=== PATIENT | male | born 1990 | race Hispanic/Latino ===

== ENCOUNTER 2023-11-30 12:59 | Emergency (ER) | payer OTHER, SELFPAY ==
[2023-11-30 13:05] VITALS: BP 162/109; PULSE 83; RESP 16; TEMP 36.1; O2SAT 99; BMI 35.3
--- NOTE | 2023-11-30 13:07 | DI.RAD.S_ITS ---
PROCEDURE: XR WRIST LT MIN 3V INDICATIONS: pain TECHNIQUE: 4 views of the wrist were acquired. COMPARISON: None. FINDINGS: Bones: No fractures or dislocations. No suspicious bony lesions. Soft tissues: No suspicious soft tissue calcifications. IMPRESSION: No acute bony abnormality. Dictated by: Rosemary Hernández M.D. on 11/30/2023 at 12:27 Approved by: Rosemary Hernández M.D. on 11/30/2023 at 12:27
--- NOTE | 2023-11-30 14:32 | ED.EXTPRO ---
HPI - Extremity Problem <LAURA Diaz - Last Filed: 11/30/23 14:44> General Chief complaint: Extremity Problem,Nontraumatic Stated complaint: Left wrist pain Time Seen by Provider: 11/30/23 14:32 Source: patient Mode of arrival: Ambulatory History of Present Illness HPI Narrative: 33-year-old male, never smoker, presents to the emergency department with left wrist pain x3 days. Patient states that he dislocated his left wrist a year ago, was reduced by a relative, and was never seen by healthcare professional for this. Patient reports that over the last 3 days the left wrist has become more painful, but denies any known trauma to that area. Related Data Home Medications Medication Instructions Recorded Confirmed oxcarbazepine 600 mg tablet 600 mg PO QDAY ##0 11/11/15 prazosin 2 mg capsule (Minipress) 2 mg PO ##0 11/11/15 trazodone 150 mg tablet 150 mg PO HS #0 tabs 11/11/15 Previous Rx's Medication Instructions Recorded diazepam 5 mg tablet (Valium) 5 mg PO Q8HP PRN #10 tabs 11/11/15 hydrocodone 5 mg-acetaminophen 325 1 tab PO Q6HP PRN #10 tabs 11/11/15 mg tablet ([place]) naproxen 500 mg tablet (Naprosyn) 500 mg PO Q12HP PRN #30 tabs 11/11/15 Allergies Allergy/AdvReac Type Severity Reaction Status Date / Time Penicillins [PENICILLINS] AdvReac Mild RASH Unverified 11/30/23 13:05 Review of Systems <LAURA Diaz - Last Filed: 11/30/23 14:44> Review of Systems Narrative: Narrative: See HPI. GENERAL: Denies chills, fatigue, fever, sweats. HEENT: Denies sinus pain, ear pain, sore throat, difficulty swallowing, dizziness. RESPIRATORY: Denies dyspnea, cough, wheezing, sputum. CARDIOVASCULAR: Denies chest pain, palpitations, edema. GASTROINTESTINAL: Denies nausea, vomiting, abdominal pain, diarrhea, constipation. MSK: Endorses left wrist pain. SKIN: Denies rash, skin lesions, or pruritis. NEUROLOGIC: Denies weakness, dizziness, headache, numbness, confusion. Patient History <LAURA Diaz - Last Filed: 11/30/23 14:44> Social History Smoking Status: Never smoker Smoking Status: Never smoker Substance Use Type: marijuana Exam <LAURA Diaz - Last Filed: 11/30/23 14:44> Narrative Exam Narrative: Exam Narrative: GENERAL: This is a well-nourished, well-developed patient, in no acute distress HEAD: Atraumatic. Normocephalic. ENT: Nose without bleeding, purulent drainage. Airway patent. RESPIRATORY: Respiratory rate and effort are normal. MSK: Moves all extremities. Normal range of motion, no clubbing or edema. Neurovascularly intact. NEURO: A&O x 3. SKIN: Warm, dry, no rashes or lesions noted. WRIST: There is no swelling, bruising or asymmetry. There is mild tenderness to the base of the thumb, but no tenderness to palpation over the carpals, distal ulnar head or radial head. There is no snuff-box tenderness. Sensation grossly intact. Patient is unable to pronate and supinate without pain. Range of motion is full but with minimal pain. Radial pulse intact. [employer] is strong and equivalent. Inter-digital strength is intact. The contralateral wrist exam is unremarkable. Initial Vital Signs Initial Vital Signs: Vital Signs Temperature 97.0 F L 11/30/23 13:05 Pulse Rate 83 11/30/23 13:05 Respiratory Rate 16 11/30/23 13:05 Blood Pressure 162/109 H 11/30/23 13:05 Pulse Oximetry 99 11/30/23 13:05 Oxygen Delivery Method Room Air 11/30/23 13:05 Reviewed <Kyle Roper MD - Last Filed: 11/30/23 21:53> Initial Vital Signs Initial Vital Signs: Vital Signs Temperature 97.0 F L 11/30/23 13:05 Pulse Rate 83 11/30/23 13:05 Respiratory Rate 16 11/30/23 13:05 Blood Pressure 162/109 H 11/30/23 13:05 Pulse Oximetry 99 11/30/23 13:05 Oxygen Delivery Method Room Air 11/30/23 13:05 Course <LAURA Diaz - Last Filed: 11/30/23 14:44> Orders Ordered: ED Orders 11/30/23 13:07 XR wrist LT min 3V Stat Vital Signs Vital signs: Vital Signs - 8 hr 11/30/23 13:05 Temperature 97.0 F L Pulse Rate 83 Respiratory Rate 16 Blood Pressure 162/109 H Pulse Oximetry 99 Oxygen Delivery Method Room Air <Kyle Roper MD - Last Filed: 11/30/23 21:53> Orders Ordered: ED Orders 11/30/23 13:07 XR wrist LT min 3V Stat Vital Signs Vital signs: Vital Signs - 8 hr 11/30/23 13:05 Temperature 97.0 F L Pulse Rate 83 Respiratory Rate 16 Blood Pressure 162/109 H Pulse Oximetry 99 Oxygen Delivery Method Room Air MDM - Extremity (Nontraumatic) <LAURA Diaz - Last Filed: 11/30/23 14:44> Differential Diagnosis Differential diagnosis: Likely other (Left wrist fracture, strain or sprain) Imaging Data Extremity x-ray #1: Radiologist's Impression: [address] [address] XRay Report Signed Patient: Jordin Peña MR#: [id number] : 1990 Acct:[id number] Age/Sex: 33 / M Date of Service: 11/30/23 Loc: ED Accession Number: [id number] Procedure: XR wrist LT min 3V Ordering Provider: Chema Herrera PROCEDURE: XR WRIST LT MIN 3V INDICATIONS: pain TECHNIQUE: 4 views of the wrist were acquired. COMPARISON: None. FINDINGS: Bones: No fractures or dislocations. No suspicious bony lesions. Soft tissues: No suspicious soft tissue calcifications. IMPRESSION: No acute bony abnormality. Dictated by: Rosemary Hernández M.D. on 11/30/2023 at 12:27 Approved by: Rosemary Hernández M.D. on 11/30/2023 at 12:27 [facility] Narrative Medical decision making narrative: 33-year-old male that presents to the emergency department with left wrist pain. Assessment was encouraging x-ray was negative. I suspect this is an overuse injury and have recommended supportive care that includes elevation above heart, ice or cool compress to the affected area and Tylenol or ibuprofen as needed for discomfort. Patient was fitted for a wrist splint, per his request. Discussed plan of care and return precautions with patient, who verbalized understanding and was agreeable with course of action. Discharge Plan Departure Patient Disposition: Home Clinical Impression: Muscle strain of left wrist Qualifiers: Encounter type: initial encounter Qualified Code(s): S66.912A - Strain of unspecified muscle, fascia and tendon at wrist and hand level, left hand, initial encounter Instructions: DI for Muscle Strain Activity Restrictions/Additional Instructions: *You have been diagnosed with a left wrist strain. The x-ray was normal and no fracture or dislocation noted. I believe this may be from an overuse injury and recommend supportive care that includes elevating above your heart and application of ice or cool compress to help with the inflammation and swelling. We have fitted you with a wrist brace that may help with your discomfort. Also, be cognizant of positioning of your hand and wrist when sleeping to ensure it is not in a painful position. Please follow-up with your family doctor as needed. *What to do: *Please continue to take your regular medications as directed. [ ] New medication prescriptions sent to your pharmacy: [ ] [ ] New medication written as a paper prescription [x ] No new medications given *Please follow up with your primary care provider in 2-3 days, call for an appointment. Let them know you were seen in the Emergency Department and that we ask that you be seen in follow up. We will electronically transmit a record of today's note if your PCP is in our system *If you do not have a primary care provider please contact the [facility] Resource line at [phone]. They will ask some questions about your medical history and help get you set up with a doctor in the community. ? Return to ER if you should have any new, worsening or concerning symptoms, such as worsening pain, severe headache, confusion, chest pain, difficulty breathing, fever greater than 101 F, shaking chills, persistent vomiting to the point that you cannot drink fluids, or other new or worsening symptoms. Prescriptions: No Action trazodone 150 MG tablet 150 mg PO HS Qty: 0 oxcarbazepine 600 MG tablet 600 mg PO QDAY Qty: 0 prazosin [Minipress] 2 MG capsule 2 mg PO Qty: 0 hydrocodone-acetaminophen [[place]] 5 MG/325 MG tablet 1 tab PO Q6HP PRNQty: 10 0RF naproxen [Naprosyn] 500 MG tablet 500 mg PO Q12HP PRNQty: 30 0RF diazepam [Valium] 5 MG tablet 5 mg PO Q8HP PRNQty: 10 0RF Referrals: Glenna Barlow MD [Primary Care Provider] - Stand Alone Forms: Patient Portal/API ED Sign-out <Kyle Roper MD - Last Filed: 11/30/23 21:53> Cosign ED Attending Cosignature Attestation: I was immediately available in the department for consultation. This documentation has been reviewed and I agree with assessment and plan. Supervised by Klye Roper [id number]
== END 2023-11-30 14:47 | disposition home or self-care (01) ==
PROVIDERS: Emergency Provider Registered Nurse; PCP Family Medicine
DX: S66.912A Strain of unspecified muscle, fascia and tendon at wrist and hand level, left hand, initial encounter (principal)
CPT/HCPCS: 73110; 99283